=== PATIENT | male | born 1940 | race Caucasian/White ===

== ENCOUNTER → 2023-09-29 08:15 | Outpatient (REF) | payer MEDICARE, BC, SELFPAY | LOC: DHCBS HW 08:15 | PROVIDERS: ATTENDING PHYSICIAN Internal Medicine Cardiovascular Disease; FAMILY PHYSICIAN Family Medicine | DX: I48.0 Paroxysmal atrial fibrillation (principal); I45.10 Unspecified right bundle-branch block | CPT/HCPCS: 93306 ==

== ENCOUNTER → 2023-12-04 09:37 | Outpatient (REF) | payer MEDICARE, BC, SELFPAY ==
[2023-12-04 12:26] LABS: ALT (SGPT) 15 U/L (0-50); AST (SGOT) 21 U/L (17-59); Albumin 4.1 g/dl (3.5-5.0); Alkaline Phosphatase 70 U/L (38-126); Blood Urea Nitrogen 25 mg/dl (9-20); Calcium 9.4 mg/dl (8.4-10.2); Carbon Dioxide 28 mmol/L (22-30); Chloride 105 mmol/L (98-107); Glucose 118 mg/dl (70-99); HDL Cholesterol 48 mg/dl; LDL Cholesterol, Calculated 63 mg/dl; Potassium 4.5 mmol/L (3.5-5.1); Sodium 137 mmol/L (135-145); Total Bilirubin 1.2 mg/dl (0.2-1.3); Total Cholesterol 124 mg/dl (50-199); Total Protein 6.5 g/dl (6.3-8.2); Triglyceride 67 mg/dl (10-149); Very Low Density Lipoprotein 13 mg/dl (0-30); eGFR 49.25
== END ==
LOC: REG 09:37
PROVIDERS: ATTENDING PHYSICIAN Internal Medicine Cardiovascular Disease
DX: I10 Essential (primary) hypertension (principal); E78.00 Pure hypercholesterolemia, unspecified
CPT/HCPCS: 36415; 80053; 80061

== ENCOUNTER → 2024-07-12 13:53 | Outpatient (REF) | payer MEDICARE, BC, SELFPAY ==
[2024-07-12 15:07] LABS: Blood Urea Nitrogen 20 mg/dl (9-20); Calcium 9.2 mg/dl (8.4-10.2); Carbon Dioxide 25 mmol/L (22-30); Chloride 103 mmol/L (98-107); Glucose 142 mg/dl (70-99); Potassium 4.7 mmol/L (3.5-5.1); Sodium 141 mmol/L (135-145); eGFR 53.84
== END ==
LOC: REG 13:53
PROVIDERS: ATTENDING PHYSICIAN Internal Medicine Cardiovascular Disease
DX: I10 Essential (primary) hypertension (principal)
CPT/HCPCS: 36415; 80048

== ENCOUNTER → 2024-08-10 15:45 | Outpatient (REF) | payer MEDICARE, BC, SELFPAY | LOC: DHSLP 15:45 | PROVIDERS: ATTENDING PHYSICIAN Internal Medicine Cardiovascular Disease; FAMILY PHYSICIAN Family Medicine | DX: G47.33 Obstructive sleep apnea (adult) (pediatric) (principal); R09.02 Hypoxemia | CPT/HCPCS: 95806 ==

== ENCOUNTER 2024-09-06 11:47 | Emergency (ER) | payer MEDICARE, BC, SELFPAY ==
[2024-09-06 11:54] VITALS: BP 127/81
--- NOTE | 2024-09-06 12:04 | EDRN ---
Steri-strips placed on skin tear to right hand by this RN, wound cleaned and dried prior to steri strips.
Abrasions to face irrigated with NSS.
[2024-09-06 13:27] VITALS: BMI 30.8
--- NOTE | 2024-09-06 13:37 | ED.GENMED ---
History of Present Illness
General
Chief Complaint: Fall
Source: patient
Exam Limitations: none
Time Seen by Provider: 09/06/24 13:14
Nursing documentation reviewed up to this point in time: agreed with
History of Present Illness
History of Present Illness:
83-year-old male with a past medical history of coronary artery disease, hypertension, hyperlipidemia, diabetes presents emergency department today with concerns of a trip and fall. Patient states that he was walking on the [employer] house in
[place] today when he tripped over the last step and fell forward falling onto his left side and hitting the front of his face. Patient does take Eliquis. Patient [place] any loss of consciousness. Patient denies any neck pain, headaches,
dizziness, lightheadedness. Patient denies any pain behind his eyes, loss of vision. Patient did have some bleeding from his nose that has since resolved.
Past History
Past History
ED Past Medical History: CAD, Hypercholesterolemia and Other (CKD)
ED Past Surgical History: Cardiac
Review of Systems
Review of Systems
All Other Systems: ROS reviewed and negative except as documented in HPI and ROS
Phy Exam
Physical Exam
Physical Exam:
General: Patient is well appearing and in no acute distress; non-toxic
Skin: Warm and dry, scattered abrasions noted to the forehead and to the bridge of the nose
Head: No tenderness palpation of the facial bones, TMJ joints intact bilaterally, no tenderness palpation of the bridge of the nose
Eyes: Sclera non-icteric. EOMs intact, no entrapment.
Neck: No tenderness noted to the cervical spine
Cardiac: Regular rate and rhythm, no murmurs, no tenderness palpation of external chest wall
Peripheral Vascular: No lower extremity swelling or edema
Pulm: Normal respiratory effort, no wheezes, rales, or rhonchi
Abdomen: No abdominal tenderness to palpation
Musculoskeletal: Mild swelling noted to left elbow, full range of motion of bilateral upper extremities, tenderness palpation of left elbow
Neuro: CN II-XII intact, no focal neurologic deficits.
Psychiatric: Appropriate mood and affect.
Course
Orders/Labs/Results
Orders:
Orders
09/06/24 11:[address] [CT Head W/o Iv Contrast] Urgent
Comment:
Reason For Exam: fall on thinners
CR Elbow - Left Min 3 Views Urgent
Comment:
Reason For Exam: fall
09/06/24 13:57
Oxycodone/Acetaminophen [Percocet 5/325] 1 tablet PO NOW STA
09/06/24 14:07
Sling Left-Treatment ONCE
09/06/24 14:08
Long Arm Left-Treatment ONCE
Vital Signs
Initial and Last Documented VS:
Initial Vital Signs
Temp Pulse Resp BP Pulse Ox
98.4 F 91 18 127/81 99
09/06/24 11:54 09/06/24 11:54 09/06/24 11:54 09/06/24 11:54 09/06/24 11:54
Last Documented Vital Signs
Temp Pulse Resp BP Pulse Ox
98.4 F 94 16 152/99 97
09/06/24 11:54 09/06/24 14:30 09/06/24 14:30 09/06/24 14:30 09/06/24 14:30
Procedures
Splinting/Sling Placement
Left Elbow:
Procedure completed by: ER environmental test techniciandeshaun PA-C
Pre-splint extermity exam: neurovascular intact
Type of splint: posterior long arm
Splint material: fiberglass
Splint checked by provider?: Yes
Type of sling: sling fitted
Normal distal neurovascular exam?: Yes
MDM/Problems Addressed
Differential Diagnosis Includes:
see below
MDM/Problems Addressed:
NUMBER AND COMPLEXITY OF PROBLEMS ADDRESSED AT THE ENCOUNTER
� Chronic conditions affecting care: CAD, diabetes, hypertension, hyperlipidemia
� Acute Exacerbation and/or Progression of Chronic Illness:
� Differential Diagnosis includes: Subdural hematoma, epidural hematoma, contusion, concussion
AMOUNT AND/OR COMPLEXITY OF DATA TO BE REVIEWED AND ANALYZED
� I performed an independent evaluation of and my interpretation is:
CT: No evidence of bleeding or skull fracture
X-rays: Elbow x-ray demonstrates radial head and radial neck fracture
Laboratory Studies: no indication for blood work at this time
Other:
� Review of other/old records: Reviewed previous record from your physician documentation on 03/29/2021, patient seen for hip pain, likely sac injury versus contusion, was just
� Clinical information was obtained by an independent historian: Son present who helped provide history
� Prescriptions/Medications Considered but not given: n/a
� Further testing considered but not performed: n/a
RISK OF COMPLICATIONS AND/OR MORBIDITY OR MORTALITY OF PATIENT MANAGEMENT
� Social determinants of health affecting care: none
� Discussion with other providers: ER attending
� Escalation of care including admission/observation vs risk of discharge considered:
83-year-old male presents the emergency department following a trip and fall. He does take Eliquis. On physical exam he does have swelling and tenderness noted to the left elbow. He is unremarkable neurologic exam. He did not syncopize. He is
no evidence of bleeding or fracture within the skull no evidence of bleeding within the brain. He has no tenderness palpation of the facial bones. X-ray does show radial head and neck fracture, patient was placed in posterior long-arm splint.
Patient will follow-up with [facility]. Discussed return precautions, patient stable for discharge.
*Pulse Oximetry
Patient hypoxic: no
*Critical Care Note
Total Time (30-74mins, 75-104mins- exclusive of procedures): Not Applicable
ED Attending Note
-
Portions of this chart may have been created with voice recognition software.� Occasional wrong word or��sound alike� substitutions may have occurred due to the inherent limitations of voice recognition software.
Discharge Plan
Departure
Patient Disposition: Home (Routine Discharge)
Date of Disposition: 09/06/24
Time of Disposition: 14:41
Patient with high blood pressure during this ER visit?: Yes
Condition: Good
Discharge Problem:
Left radial head fracture, Fracture of radial neck, left, closed, Fall
Instructions: Head Injury in Adults (DC), Preventing falls in adults, How to care for a splint
Prescriptions:
No Action
dutasteride 0.5 MG capsule
0.5 mg PO DAILY
atorvastatin 40 MG tablet
40 mg PO QPM 0RF
clopidogrel 75 MG tablet
75 mg PO DAILY Qty: 90 3RF
ramipril 2.5 MG capsule
2.5 mg PO DAILY 0RF
aspirin 81 MG tablet,chewable
81 mg PO DAILY 0RF
borekozj-tjr-YY-lycopen-lutein [Centrum Silver] 1 EACH tablet
1 ea PO DAILY Qty: 1 0RF
metoprolol succinate 25 MG tablet extended release 24 hr
25 mg PO DAILY Qty: 90 10RF
tamsulosin 0.4 MG capsule
0.4 mg PO DAILY
pioglitazone 30 MG tablet
30 mg PO DAILY
Referrals:
Chuck Ortiz MD [Family Provider] -
Kenn Garcia MD [Active] - Call in 1-3 days for appt
Activity Restrictions/Additional Instructions:
Please call [facility] later today to schedule an appointment to address your radial head and neck fracture.
Please continue to monitor your symptoms and follow up with your primary care provider.
PLEASE RETURN EMERGENCY DEPARTMENT SHOULD YOU DEVELOP CHEST PAIN, SHORTNESS OF BREATH, INTRACTABLE NAUSEA OR VOMITING, HEADACHE, LIGHTHEADEDNESS, DIZZINESS, PERSISTENT NECK PAIN, OR ANY OTHER SIGNS OR SYMPTOMS CONCERNING TO YOU.
Interventions
Interventions:
*Risk Screen - Suicide Last Done: 09/06/24 11:54
*General Assessment Last Done: 09/06/24 11:54
*Neglect/Abuse Screening Last Done: 09/06/24 11:54
ED- Fall Risk Assessment Last Done: 09/06/24 13:28
*ED COVID-19 Vaccine History Last Done: 09/06/24 13:28
*Nursing Disposition Last Done: 09/06/24 15:12
ED-Musculoskeletal Assessment Last Done: 09/06/24 13:29
ED- Neurological Assessment Last Done: 09/06/24 13:28
ED-Skin Assessment Last Done: 09/06/24 13:43
Discharge Date and Time
Discharge Date/Time: 09/06/24 15:13
Print Language: SWISS
[2024-09-06] MEDS: PERCOCET 5/325 1 TABLET PO (14:06)
[2024-09-06 14:30] VITALS: BP 152/99
== END 2024-09-06 15:13 | disposition home or self-care (01) ==
LOC: EMR 11:47
PROVIDERS: EMERGENCY PHYSICIAN Emergency Medicine; FAMILY PHYSICIAN Family Medicine
DX: S52.122A Displaced fracture of head of left radius, initial encounter for closed fracture (principal); S52.132A Displaced fracture of neck of left radius, initial encounter for closed fracture; W18.39XA Other fall on same level, initial encounter; Y93.01 Activity, walking, marching and hiking; I25.10 Atherosclerotic heart disease of native coronary artery without angina pectoris; E78.00 Pure hypercholesterolemia, unspecified; I12.9 Hypertensive chronic kidney disease with stage 1 through stage 4 chronic kidney disease, or unspecified chronic kidney disease; E11.22 Type 2 diabetes mellitus with diabetic chronic kidney disease; N18.9 Chronic kidney disease, unspecified
CPT/HCPCS: 99284; 29105; 70450; 73080

== ENCOUNTER → 2024-09-13 14:20 | Outpatient (REF) | payer MEDICARE, BC, SELFPAY | LOC: HWRAD 14:20 | PROVIDERS: ATTENDING PHYSICIAN Orthopaedic Surgery; FAMILY PHYSICIAN Family Medicine | DX: S52.122A Displaced fracture of head of left radius, initial encounter for closed fracture (principal) | CPT/HCPCS: 73200 ==

== ENCOUNTER → 2024-12-05 10:04 | Outpatient (REF) | payer MEDICARE, BC, SELFPAY ==
[2024-12-05 11:48] LABS: % Basophils 0.4 % (0-2); % Eosinophils 0.4 % (0-6); % Immature Granulocytes 0.6 % (0-0.5); % Lymphocytes 14.2 % (20.5-51.1); % Monocytes 8.7 % (1.7-9.3); % Neutrophils 75.7 % (42.2-75.2); Absolute Immature Granulocytes 0.1 10^3/uL (0-0.05); Absolute Lymphocytes 1.2 10^3/uL (1.2-3.4); Absolute Monocytes 0.7 10^3/uL (0.1-0.6); Absolute Neutrophils 6.2 10^3/uL (1.4-6.5); Hemoglobin 15.2 g/dL (13.0-18.0); Mean Corpuscular Hgb 31.9 pg (27.0-31.0); Mean Corpuscular Volume 96.4 fL (80.0-94.0); Mean Platelet Volume 10.8 fL (7.4-10.4); Nucleated Red Blood Cells % 0 % (-); Platelet Count 206 10^3/uL (130-400); Red Blood Cell Count 4.77 10^6/uL (4.70-6.10); Red Cell Dist. Width 13.6 % (11.5-14.5); White Blood Cell Count 8.2 10^3/uL (4.8-10.8)
[2024-12-05 15:43] LABS: Blood Urea Nitrogen 29 mg/dl (9-20); Calcium 9.6 mg/dl (8.4-10.2); Carbon Dioxide 23 mmol/L (22-30); Chloride 109 mmol/L (98-107); Glucose 133 mg/dl (70-99); Potassium 4.8 mmol/L (3.5-5.1); Sodium 142 mmol/L (135-145)
== END ==
LOC: REG 10:04
PROVIDERS: ATTENDING PHYSICIAN Orthopaedic Surgery; FAMILY PHYSICIAN Family Medicine
DX: Z01.818 Encounter for other preprocedural examination (principal)
CPT/HCPCS: 36415; 80048; 85025

== ENCOUNTER → 2025-04-20 14:01 | Outpatient (REF) | payer MEDICARE, BC, SELFPAY | LOC: RAD 14:01 | PROVIDERS: ATTENDING PHYSICIAN Family Medicine | DX: M47.26 Other spondylosis with radiculopathy, lumbar region (principal) | CPT/HCPCS: 72110 ==